=== PATIENT | male | born 1970 | race Two or more races ===

== ENCOUNTER 2025-01-27 20:36 | Emergency (ER) | payer MEDICAID, SELFPAY ==
--- NOTE | 2025-01-27 20:51 | EDNOTE_ITS ---
Altered Mental Status RME/HPI General Chief Complaint: General Adult/Misc Complain Stated Complaint: ALTERED Time Seen by Provider: 01/27/25 20:54 Arrival date/time: 01/27/25 20:36 RME / HPI RME / HPI narrative: This section includes all my notes and documentations, including HPI, PE, and ED course. Elie Piedra MD HPI: 54yo male with a history of asthma BIBA from home presents to the ED for a chief complaint of altered mental status. Per EMS, patient and his were watching TV and smoking marijuana, reporting 30 minutes later, he became altered and was vomiting. Patient states he was working out in the sun all day today. Per EMS, patient was severely hypoxic and hypotensive en route at 66/40 and gave him IVF. Patient also took a pill of Bactrim earlier today, is concerned about possible allergic reaction. No other complaints reported. ROS: All negative except as documented in HPI. Physical Exam: General: Patient seems alert. But he is not open his eyes. He seems severely anxious with severe generalized shaking. Severe hypoxia noted. Eyes: Conjunctivae and lids clear. PERRL. EOMI. ENT: No nasal congestion. Patent airway. Neck: Supple. Heart: RRR. Lungs: Mild respiratory distress. Moderately decreased air movement with bilateral wheezing. Abdomen: Soft and nontender. Legs: No clubbing, cyanosis, edema. Skin: Warm and dry. Severe erythema and inflammation in the trunk. Neuro: Alert. Cranial nerves II to XII grossly normal. No peripheral motor deficits. I reviewed all diagnostic test results. My interpretation of the EKG is sinus rhythm (92 bpm) with no acute ST?T changes. My interpretation of the chest x-ray is bilateral infiltrates. Blood tests remarkable for WBC 14.5. At this point, diagnoses include Asthma attack, Pneumonia, Allergy to Bactrim, and Heat stroke. Treatment here included Duoneb, NS, Rocephin, Azithromycin, Toradol, Ativan, and Methylprednislone. Significant improvement noted. Recommended admission for further care considering severe presentation. Patient declined. Discussed potential risks, including sudden . Still, we couldn't change his mind. Based on my best medical judgment, made decision no further evaluation or treatment indicated at this time. Patient understands and agrees to the discharge instructions customized and printed, see below. Discharge instructions from Dr. Piedra: --Since you declined hospitalization, you are being discharged. --No physical exertion for 3 days to help rest the lungs. ?No smoking or exposure to smoking or pets or dust or cold or humidity. --Zithromax and cefdinir to kill the germs causing the pneumonia. --Prednisone to help decrease the swelling in the airways. --Albuterol 2 puffs every 4-6 hours for 3 days to help keep the airways open. Then as needed for cough or shortness of breath. --Avoid Bactrim and sulfa products. --Avoid prolonged heat exposure. --For good hydration, increase oral fluid and maintain clear urine. If dark or yellow, increase oral fluid. --See a private doctor on for recheck and further care. Ask to review all test results and official radiology reports, to make sure you receive all necessary follow-ups and monitoring. Ask for help until you are completely better. --Seek immediate medical care with worsening or with any concerns. Elie Piedra MD Related Data Previous Rx's ?Medication ?Instructions ?Recorded hydrocodone 5 mg-acetaminophen 325 1 tab PO BID PRN pa in #10 tabs 03/14/ mg tablet albuterol sulfate 90 mcg/actuation 2 puff inhalation Q 6H PRN 01/27/25 aerosol inhaler shortness of breath or wheez ing #8.5 grams azithromycin 500 mg tablet 500 mg PO QDAY 3 days #3 ta bs 01/27/25 (Zithromax TRI-LUIS ENRIQUE) cefdinir 300 mg capsule 300 mg PO BID #14 caps 01/27 prednisone 50 mg tablet 50 mg PO BID 3 days #6 tabs 01/27/25 lorazepam 1 mg tablet (Ativan) 1 mg PO BID PRN anxiety #20 tabs 01/28/25 Allergies Allergy/AdvReac Type Severity Reaction Status Date / Time sulfamethoxazole (From Allergy Severe Anaphylaxis Verified 01/28/25 00:23 Bactrim) trimethoprim (From Bactrim) Allergy Severe Anaphylaxis Verified 01/28/25 00:23 NKA* Allergy Uncoded 03/14/22 08:30 Review of Systems Review of Systems Systems Reviewed: All systems reviewed, normal except as documented Past Medical History Social History SMOKING STATUS: Never smoker ED Exam Narrative Physical exam: As noted in HPI. Course Course Course Narrative: CXR is ordered for determining the etiology of AMS. 2223: Sepsis alert initiated. Orders made at this time are congruent with ED Adult Sepsis Order List. Re-evaluation is to be completed. NS IVF was infused at 2215. Quality Measures none Orders Category Date Time Status Bedside COVID-19 Antigen Test NOW Care 01/27/25 20:55 Completed Bedside Influenza A&B Antigen Test NOW Care 01/27/25 20:[address] Screening NOW Care 01/27/25 20:58 Completed EKG (ED ONLY) *Do not use* NOW Care 01/27/25 20:47 Completed Saline [Insert IV] NOW Care 01/27/25 20:[address] abdomen pelvis w con Stat Exams 01/27/25 20:[address] angio chest Stat Exams 01/27/25 20:[address] head/brain wo con Stat Exams 01/27/25 20:58 Taken EKG (ED Only) Stat Exams 01/27/25 20:47 Ordered XR chest 1V portable Stat Exams 01/27/25 20:58 Completed ABG [Arterial Blood Gas] Stat Lab 01/27/25 21:25 Completed Acetaminophen Stat Lab 01/27/25 21:13 Completed Alcohol, Blood Medical Stat Lab 01/27/25 21:13 Completed Ammonia Stat Lab 01/27/25 21:13 Completed Amylase Stat Lab 01/27/25 21:13 Completed BNP [B-Type Natriuretic Peptide] Stat Lab 01/27/25 21:13 Completed Beta Hydroxybutyrate Stat Lab 01/27/25 21:13 Completed Bilirubin,Direct Stat Lab 01/27/25 21:13 Completed Blood Culture (Lab) Stat Lab 01/27/25 21:13 Received CBC Stat Lab 01/27/25 20:59 Completed CK [Creatine Kinase] Stat Lab 01/27/25 21:13 Completed CMP [Comprehensive Metabolic Panel] Stat Lab 01/27/25 21:13 Completed CRP [C-Reactive Protein] Stat Lab 01/27/25 21:13 Completed D-Dimer Stat Lab 01/27/25 21:13 Completed ESR [Sed Rate (ESR)] Stat Lab 01/27/25 20:59 Completed Free T4 (Free Thyroxine) Stat Lab 01/27/25 21:13 Completed Lactate (Lactic Acid) Stat Lab 01/27/25 21:13 Completed Lactic Acid, 3 HR Stat Lab 01/28/25 00:06 Completed Lipase Stat Lab 01/27/25 21:13 Completed Magnesium Stat Lab 01/27/25 21:13 Completed PT [Prothrombin Time with INR] Stat Lab 01/27/25 21:13 Completed PTT [Partial Thromboplastin Time] Stat Lab 01/27/25 21:13 Completed Procalcitonin Stat Lab 01/27/25 21:13 Completed Salicylate Stat Lab 01/27/25 21:13 Completed TSH [Thyroid Stimulating Hormone] Stat Lab 01/27/25 21:13 Completed Troponin I Stat Lab 01/27/25 21:13 Completed Albuterol/Ipratr Rt Yoly [Duoneb Rt Yoly] Med 01/27/25 20:56 Discontinued 3 ml INH X1 ONE Azithromycin Inj [Zithromax Inj] 500 mg Med 01/27/25 22:22 Discontinued Sodium Chloride 0.9% 250 ml [Ns] 250 ml IV X1 Ketorolac Inj [Toradol Inj] Med 01/27/25 20:56 Discontinued 30 mg IVP X1 ONE LORazepam [Ativan Inj] Med 01/27/25 20:56 Discontinued 2 mg IVP X1 ONE MethylPREDNISolone.* [SoluMEDROL Inj] Med 01/27/25 20:56 Discontinued 125 mg IVP X1 ONE Sodium Chloride 0.9% 1000 ml [Ns] 1,000 ml Med 01/27/25 20:56 Discontinued IV 999 mls/hr Sodium Chloride 0.9% 1000 ml [Ns] 1,000 ml Med 01/27/25 20:56 Discontinued IV 999 mls/hr Sodium Chloride 0.9% 1000 ml [Ns] 1,000 ml Med 01/27/25 22:22 Discontinued IV 999 mls/hr cefTRIAXone [Rocephin] 1,000 mg Med 01/27/25 22:22 Discontinued SODIUM CHLORIDE 0.9% (Popper) [Ns 0.9% (P)] 50 ml IV X1 BiPAP / CPAP NOW RT 01/27/25 20:55 Completed Vital Signs Vital signs: Vital Signs Temperature 96.1 F L 01/27/25 21:01 Pulse Rate 94 01/27/25 21:01 Respiratory Rate 28 H 01/27/25 21:01 Blood Pressure 151/64 H 01/27/25 21:01 Pulse Oximetry (%) 90 L 01/27/25 21:01 Oxygen Delivery Method Room Air 01/27/25 21:01 Altered Mental Status MDM Narrative MDM Narrative:: Scribe Attestation: 01/27/25 - Olesya, Vonnie Rodgers am scribing for and in the presence of Dr. Piedra. Patient data External records reviewed:: [facility] previous records (Per chart review, patient has no relevant previous ED visits or admissions to this facility.) Clinical information provided by:: EMS Social determinants that could affect healthcare access:: substance use (smokes marijuana) Patient has the following chronic illnesses:: none How is presenting disease/condition affected by chronic disease/condition?: no chronic disease Evaluation data The following diagnostics were reviewed and interpreted by me:: lab results, radiology exam(s) and EKG tracing(s) Lab and/or radiology exams considered but not ordered:: none Interpretation Summary: Asthma attack, Pneumonia, Allergy to Bactrim, Heat stroke Medications / Prescriptions Medications or Prescriptions considered but not ordered:: none Medication administrations:: Medication Administration History Discontinued Medications Albuterol/Ipratropium (Albuterol/Ipratropium (Duoneb) Rt Yoly 3 Ml Nebu) 3 ml INH X1 ONE Stop: 01/27/25 20:57 Last Admin: 01/27/25 21:31 Dose: 3 ml Documented By: ADÁN Sodium Chloride (Ns) 1,000 mls @ 999 mls/hr IV .Q1H1M ONE Stop: 01/27/25 21:56 Last Infusion: 01/27/25 22:15 Dose: Infused Documented By: Admin: 01/27/25 21:14 Dose: 999 mls/hr Documented By: MADDIE Sodium Chloride (Ns) 1,000 mls @ 999 mls/hr IV .Q1H1M ONE Stop: 01/27/25 21:56 Last Infusion: 01/27/25 22:59 Dose: Infused Documented By: Admin: 01/27/25 21:15 Dose: 999 mls/hr Documented By: MADDIE Ceftriaxone Sodium 1,000 mg/ (Sodium Chloride) 50 mls @ 100 mls/hr IV X1 ONE Stop: 01/27/25 22:51 Last Infusion: 01/27/25 23:12 Dose: Infused Documented By: Admin: 01/27/25 22:42 Dose: 100 mls/hr Documented By: MADDIE Azithromycin 500 mg/ Sodium (Chloride) 250 mls @ 250 mls/hr IV X1 ONE Stop: 01/27/25 23:21 Last Infusion: 01/28/25 00:52 Dose: Infused Documented By: JUAN MIGEULL Admin: 01/27/25 23:12 Dose: 250 mls/hr Documented By: MADDIE Sodium Chloride (Ns) 1,000 mls @ 999 mls/hr IV .Q1H1M ONE Stop: 01/27/25 23:22 Last Infusion: 01/28/25 00:28 Dose: Infused Documented By: Admin: 01/27/25 22:41 Dose: 999 mls/hr Documented By: MADDIE Ketorolac Tromethamine (Ketorolac Inj 30 Mg/Ml Vial) 30 mg IVP X1 ONE Stop: 01/27/25 20:57 Last Admin: 01/27/25 21:20 Dose: Not Given Documented By: MADDIE Non-Admin Reason: Patient Refused Lorazepam (Lorazepam 2 Mg/Ml Vial) 2 mg IVP X1 ONE Stop: 01/27/25 20:57 Last Admin: 01/27/25 21:21 Dose: 2 mg Documented By: MADDIE Methylprednisolone Sodium Succinate (Methylprednisolone Sod Succ 62.5 Mg/Ml 2ml Vial) 125 mg IVP X1 ONE Stop: 01/27/25 20:57 Last Admin: 01/27/25 21:15 Dose: 125 mg Documented By: MADDIE Duoneb, NS, Rocephin, Azithromycin, Toradol, Ativan, Methylprednislone Consultations Consultation(s) initiated? (list below): No Diagnosis Differential diagnosis altered mental status: alcoholic intoxication, altered mental status, delirium, dementia, hypoglycemia, hyponatremia and sepsis Most likely diagnosis given after review of the tests above:: Asthma attack, Pneumonia, Allergy to Bactrim, Heat stroke Admission Indicated Admission indicated?: not indicated Explain why admission is indicated or not indicated:: With significant improvement, there was no indication for admission. Admission Request Was there a request for admission?: No Disposition Plan Disposition Plan: Discharge Discharge Attestation Discharge Attestation: The patient and all family members were given an opportunity to ask questions and understood the discharge instructions. Discharge instructions specifically effects, indications for sooner follow up or return to the emergency department, and the expected course of current diagnosis. Patient condition: Stable Critical Care Time Critical Care Time Critical Care Time: Yes Total Critical Care Time (min.): 39 Attestation: Due to a high probability of clinically significant, life threatening deterioration, the patient required my highest level of preparedness to intervene emergently and I personally spent this critical care time directly and personally managing the patient. This critical care time included obtaining a history; examining the patient; ordering and review of studies; arranging urgent treatment with development of a management plan; evaluation of patient's response to treatment; frequent reassessment; and discussions with family and other providers. It was exclusive of separately billable procedures and treating other patients and teaching time. Elie Piedra MD Discharge Plan Plan Patient Disposition: HOME (Self Care) Prescriptions/Referrals Prescriptions/Med Rec: New prednisone 50 mg tablet 50 mg PO BID 3 Days Qty: 6 0RF albuterol sulfate 90 mcg/actuation HFA aerosol inhaler 2 puff inhalation Q6H PRN (Reason: shortness of breath or wheezing) Qty: 8.5 0RF cefdinir 300 mg capsule 300 mg PO BID Qty: 14 0RF azithromycin [Zithromax TRI-LUIS ENRIQUE] 500 mg tablet 500 mg PO QDAY 3 Days Qty: 3 0RF lorazepam [Ativan] 1 mg tablet 1 mg PO BID PRN (Reason: anxiety) Qty: 20 0RF No Action hydrocodone-acetaminophen 5-325 mg tablet 1 tab PO BID MDD 10 PRN (Reason: pain) Qty: 10 0RF Problem List Clinical Impression: Asthma attack, Pneumonia, Allergy to Bactrim, Heat stroke Patient/Caregiver Discharge Instructions Discharge Activity: activity as tolerated Education Materials: ED Asthma, Acute (Adult), ED Drug Reaction, Other, ED Heat Exhaustion, ED Pneumonia (Adult) Additional Instructions: Discharge instructions from Dr. Piedra: --Since you declined hospitalization, you are being discharged. --No physical exertion for 3 days to help rest the lungs. ?No smoking or exposure to smoking or pets or dust or cold or humidity. --Zithromax and cefdinir to kill the germs causing the pneumonia. --Prednisone to help decrease the swelling in the airways. --Albuterol 2 puffs every 4-6 hours for 3 days to help keep the airways open. Then as needed for cough or shortness of breath. --Avoid Bactrim and sulfa products. --Avoid prolonged heat exposure. --For good hydration, increase oral fluid and maintain clear urine. If dark or yellow, increase oral fluid. --See a private doctor on for recheck and further care. Ask to review all test results and official radiology reports, to make sure you receive all necessary follow-ups and monitoring. Ask for help until you are completely better. --Seek immediate medical care with worsening or with any concerns. Print Language: Polish Stand Alone Forms: [employer] Award Info., Patient Portal Info Letter
[2025-01-27 20:56] VITALS: BMI 28.1
--- NOTE | 2025-01-27 20:58 | XR_ITS ---
Examination: CT abdomen with intravenous contrast CT pelvis with intravenous contrast 2-D coronal reconstructions 2-D sagittal reconstructions Date and time of exam: January 28, 2025 at 0003 hrs. Indications: Onset abdominal pain today CTDI: vol (mGy) 7.93 DLP: (mGycm) 507 Technique: Multiple axial sections of the abdomen and pelvis have been obtained. 64 slice high-resolution scanner used. 3 mm axial sections have been obtained, post intravenous injection 100 cc Isovue-370 2-D sagittal, coronal reconstructions obtained. Low dose protocols were performed. One or more of the following dose reduction techniques were used; automated exposure control, adjustment of the mA and/or KV according to patient size, use of iterative reconstruction technique. Findings: No focal liver or splenic lesions No gallstones No pancreatic or adrenal mass No renal or ureteral calculi, no hydronephrosis Normal appendix No bowel obstruction Mild diffuse wall thickening involving the colon Abundant stool in the rectosigmoid No significant prostatomegaly Impression: Normal appendix Mild nonspecific colitis pattern
--- NOTE | 2025-01-27 20:58 | XR_ITS ---
Examination: CT brain head without contrast. 2-D sagittal coronal reconstructions Date and time of exam:January 27, 2025 at 1154 hrs. Indications: Altered mental status today CTDI: vol (mGy):51.5 DLP: (mGycm):1033 Technique: Multiple CT axial sections of the brain have been obtained, 5 mm slice thickness. Contrast has not been administered. 2-D sagittal, coronal reconstructions have been obtained Low dose protocols were performed. One or more of the following dose reduction techniques were used; automated exposure control, adjustment of the mA and/or KV according to patient size, use of iterative reconstruction technique. Findings: No significant ventricular enlargement. Intra-axial or extra-axial hemorrhage density is not seen. No mass effect or midline shift Basal cisterns are not remarkable. Fourth ventricle is midline. Cranial vault intact. Impression: Negative for acute hemorrhage, mass effect or midline shift Advise clinical correlation follow-up accordingly
--- NOTE | 2025-01-27 20:58 | XR_ITS ---
Examination: AP chest single view Technique one AP portable upright chest single view Exam date and time: January 27, 2025 2108 hrs. Indications: Shortness of breath today. Findings: Suspicious for early right lung nodular pneumonia Normal heart size Moderate osteopenia Impression: Suspicious for early diffuse right lung pneumonia, clinical correlation advised Recommend short-term follow-up chest imaging
--- NOTE | 2025-01-27 20:59 | XR_ITS ---
Examination: CTA chest with intravenous contrast 2-D reconstructions 3-D reconstructions, vascular Date and time of exam: January 28, 2025 at 0002 hrs. Indications: Shortness of breath chest pain today CTDI: vol (mGy) 9.52 DLP: (mGycm) 590 Technique: Multiple axial sections of the thorax have been obtained. 3 mm slice thickness, from below the hemidiaphragms to above the apices of the lungs. Mediastinal and lung density settings have been obtained. 2-D sagittal and coronal reconstructions. 3-D angiographic renderings, 3-D volume renderings, 3D post processing, vascular maximum intensity projections obtained. Contrast administered is 100 cc Isovue-370 intravenous . Low dose protocols were performed. One or more of the following dose reduction techniques were used; automated exposure control, adjustment of the mA and/or KV according to patient size, use of iterative reconstruction technique. Findings: No thoracic aortic aneurysmal dilatation or dissection No pulmonary artery filling defects No paratracheal tracheobronchial or bronchopulmonary adenopathy Mild atelectasis versus pneumonia in the lower lung zones Severe diffuse fatty infiltration throughout the liver No gallstones Spleen not enlarged No pancreatic or adrenal mass Kidneys partially visualized no hydronephrosis Impression: Negative for pulmonary artery emboli Atelectasis versus mild pneumonia cholelithiasis
[2025-01-27 21:01] VITALS: BP 151/64; PULSE 94; RESP 28; TEMP 35.6; O2SAT 90
[2025-01-27] MEDS: SODIUM CHLORIDE 0.9% 1000 ML 1,000 ML 999 ML IV ×3 (21:14→22:41)
[2025-01-27] MEDS: MethylPREDNISolone SOD SUCC 62.5 MG/ML 2ML VIAL 125 MG IVP (21:15)
[2025-01-27 21:21] LABS: Lactate (Lactic Acid) 2.3 mMol/L (0.4-2.0)
[2025-01-27] MEDS: LORazepam 2 MG/ML VIAL IVP (21:21)
[2025-01-27 21:22] LABS: Basophils % (Auto) 0 % (0-2.5); Eosinophils # (Auto) 0.1 Thou/mm3 (0.0-0.5); Eosinophils % (Auto) 0 % (0-10); Hematocrit 47.5 % (41.0-53.0); Hemoglobin 15.6 g/dL (13.5-16.0); Immature Granulocytes % (Auto) 1 % (0-0); Immature Granulocytes Auto 0.08 Thou/mm3 (0.00-0.00); Lymphocytes # (Auto) 5.7 Thou/mm3 (1.0-4.8); Lymphocytes % (Auto) 40 % (10-50); Mean Corpuscular HGB Conc 32.8 g/dl (31.0-37.0); Mean Corpuscular Hemoglobin 26.7 pg (25.0-35.0); Mean Corpuscular Volume 81 fL (80-100); Monocytes # (Auto) 0.6 Thou/mm3 (0.0-0.8); Monocytes % (Auto) 4 % (0-12); Neutrophils # (Auto) 8.1 Thou/mm3 (1.8-7.7); Neutrophils % (Auto) 55 % (37-80); Nucleated Red Blood Cell % 0 /100 WBC (0); Platelet Count 343 Thou/mm3 (140-440); RDW Standard Deviation 42.9 fL (35.1-43.9); Red Blood Count 5.85 Miln/mm3 (4.50-5.90); White Blood Count 14.5 Thou/mm3 (3.8-10.6)
[2025-01-27 21:23] VITALS: PULSE 84; O2SAT 92
[2025-01-27 21:31] LABS: Sed Rate (ESR) 12 mm/hr (0-20)
[2025-01-27] MEDS: ALBUTEROL/IPRATROPIUM (Duoneb) RT SOL 3 ML NEBU INH (21:31)
[2025-01-27 21:33] VITALS: PULSE 100; RESP 26; O2SAT 91
[2025-01-27 21:36] LABS: Base Excess 2 (-3-3); HCO3 27 mEq/L (20-26); Inspired Oxygen, FIO2 92 %; O2 Saturation 94 % (91-98); PCO2 44 mmHg (32.0-48.0); PO2 65 mmHg (83-108)
[2025-01-27 21:38] LABS: Allen Test Performed/OK; Puncture Site Right Radial
[2025-01-27 21:49] LABS: Ammonia 25 uMol/L (11-32)
[2025-01-27 21:50] LABS: D-Dimer 335 ng/mL (<600)
--- NOTE | 2025-01-27 21:54 | PC.NURSE ---
Pt brought in by ambulance for AMS. Pt is alert and oriented on arrival but is shaking (like he has the chills). Pt states he was outside working earlier today, he went to watch TV with his girlfriend. He states he smoked THC and took a bactrim, pt started to get SOB, AMS and generalized redness/shaking. Rectal temp done on arrival, temperature WNL. Pt denies being allergic to bactrim. Requested benadryl for possible allergic reaction, no new orders, provider did give the patient steroids.
[2025-01-27 21:59] LABS: Partial Thromboplastin Time 25.1 Seconds (22.0-36.0); Prothrombin Time 11.1 Seconds (9.0-12.2)
[2025-01-27 22:05] LABS: Carbon Dioxide 22.3 mMol/L (20.0-31.0); Chloride 108 mMol/L (98-107); Potassium 4.1 mMol/L (3.4-5.1); Sodium 141 mMol/L (136-145)
[2025-01-27 22:06] VITALS: BP 125/73; PULSE 97; RESP 22; O2SAT 95
[2025-01-27 22:06] LABS: Acetaminophen < 2.0 mcg/mL (10.0-20.0); Alanine Aminotransferase 23 U/L (10-49); Albumin, Serum 4.2 gm/dL (3.5-5.0); Albumin/Globulin Ratio 1.4 (1.2-2.2); Alcohol, Blood Medical < 3.0 mg/dL (0-10.0); Alkaline Phosphatase 87 U/L (46-116); Anion Gap 11 (7-16); Aspartate Amino Transferase 26 U/L (0-34); BUN/Creatinine Ratio 14 Ratio (12-20); Bilirubin,Direct 0.2 mg/dL (0.0-0.3); Bilirubin,Total 0.6 mg/dL (0.3-1.2); Blood Urea Nitrogen 15 mg/dL (9-23); Calcium 9.9 mg/dL (8.3-10.6); Calcium (Corrected) 9.9 mg/dL (8.5-10.1); Creatine Kinase 160 U/L (34-171); Creatinine (Component) 1.1 mg/dL (0.6-1.3); Estimated Creatinine Clearance 88.2 mL/min (>60); Free T4 (Free Thyroxine) 1.21 ng/dL (0.89-1.76); Globulin 2.9 gm/dL (2.3-3.5); Glucose 131 mg/dL (74-106); Lipase 219 U/L (12-53); Magnesium 1.9 mg/dL (1.6-2.6); Osmolality,Calculated 284 (275-295); Salicylate < 3.0 mg/dL; Thyroid Stimulating Hormone 2.99 uIU/mL (0.55-4.78); Total Protein 7.1 gm/dL (5.7-8.2); Troponin I < 0.020 ng/mL (0.0-0.045); eGFR > 60 See Note
[2025-01-27 22:07] LABS: B-Type Natriuretic Peptide < 20 pg/mL (0-100)
[2025-01-27] MEDS: cefTRIAXone 1,000 MG in SODIUM CHLORIDE 0.9% (Popper) 50 ML 100 MG IV (22:42)
[2025-01-27 22:45] VITALS: BP 132/82; PULSE 89; RESP 25; O2SAT 94
[2025-01-27] MEDS: AZITHROMYCIN INJ 500 MG in SODIUM CHLORIDE 0.9% 250 ML 250 ML 250 MG IV (23:12)
[2025-01-27 23:38] LABS: Amylase 159 U/L (30-118); C-Reactive Protein < 0.5 mg/dL (0.0-0.9); Procalcitonin 0.08 ng/ml (0.0-0.49)
[2025-01-28 00:18] LABS: Reflex Lactate? Y
[2025-01-28 00:33] VITALS: BP 116/76; PULSE 85; RESP 18; TEMP 36.6; O2SAT 93
[2025-01-28 00:33] LABS: Lactic Acid, 3 HR 0.9 mMol/L (0.4-2.0)
--- NOTE | 2025-01-28 00:46 | PRELIM_ITS ---
CT angiogram of the chest with intravenous contrast (axial sections with sagittal and coronal reformats, 3D/MIP reconstructed images) January 27, 2025 2357 hours Clinical History: Shortness of breath No prior study is available for comparison. Findings: There is no filling defect within the pulmonary artery divisions to suggest pulmonary thromboembolism. The mediastinum demonstrates no evidence of mass or lymphadenopathy. The thoracic aorta is unremarkable. There is no pericardial effusion. A small hiatal hernia is present. Dependent airspace opacities are noted in the bilateral lower lungs. No evidence of pleural effusion or pneumothorax. The osseous structures are unremarkable. Impression: No evidence of pulmonary thromboembolism. Dependent airspace opacities in the bilateral lower lungs, which may represent infiltrates/atelectasis. Recommend follow-up. Please refer to the report on the Abdomen and pelvis CT submitted separately. Report Electronically Signed By: Librado Uribe 01/28/2025 12:46:22 AM [EST]
--- NOTE | 2025-01-28 00:51 | PRELIM_ITS ---
CT scan of the abdomen and pelvis with intravenous contrast (axial sections with sagittal and coronal reformats) January 27, 2025 2357 hours Clinical History: Abdominal pain No prior study is available for comparison. Findings: The liver, gallbladder, pancreas, spleen, kidneys and adrenals are unremarkable. No evidence of bowel dilatation. There are prominent fluid filled small bowel loops in the abdomen with apparent mild wall thickening. There is mild to moderate wall thickening of the ascending, transverse, descending and sigmoid colon with mild pericolonic fat stranding. There are occasional colonic d iverticula without evidence of diverticulitis. The appendix is within normal limits. The urinary bladder is unremarkable. There is mild prostatomegaly. There is no free fluid or free air.There is no adenopathy. A small fat-containing right periumbilical hernia is present. Mild degenerative changes are identified in the spine. Impression: Findings suggestive of enterocolitis. Recommend clinical correlation. Other findings as described above. Please refer to the report on the Chest CTA submitted separately. Report Electronically Signed By: Librado Uribe 01/28/2025 12:50:26 AM [EST]
[2025-01-28 00:58] VITALS: BP 116/76; PULSE 86; RESP 18; O2SAT 95
--- NOTE | 2025-01-28 01:06 | PRELIM_ITS ---
CT scan of the head without intravenous contrast (axial sections with sagittal and coronal reformats). January 27, 2025 at 2354 hours Clinical History: Altered mental status. No prior study is available for comparison. Findings: No evidence of intracranial hemorrhage, mass effect or midline shift. The ventricles and CSF spaces are unremarkable. The calvarium is unremarkable. The mastoid air cells and the visualized paranasal sinuses are clear. Impression: No evidence of intracranial hemorrhage, mass effect or midline shift. Other findings as described above. Report Electronically Signed By: Librado Uribe 01/28/2025 1:05:43 AM [EST]
[2025-01-28 06:12] LABS: Path Review Blood Smear Sent to Pathologist
== END 2025-01-28 00:59 | disposition home or self-care (01) ==
LOC: SERX 01-28 00:44
PROVIDERS: Emergency Provider Emergency Medicine; PCP Family Medicine
DX: J18.9 Pneumonia, unspecified organism (principal); J45.901 Unspecified asthma with (acute) exacerbation; T67.01XA Heatstroke and sunstroke, initial encounter; R09.02 Hypoxemia; I95.9 Hypotension, unspecified; Z88.1 Allergy status to other antibiotic agents; Z88.2 Allergy status to sulfonamides; X58.XXXA Exposure to other specified factors, initial encounter
CPT/HCPCS: 36415; 36600; 70450; 71045; 71275; 74177; 80053; 80307; 80320; 80329; 81001; 82010; 82140; 82150; 82248; 82550; 82803; 83605; 83690; 83735; 83880; 84145; 84439; 84443; 84484; 85025; 85379; 85610; 85652; 85730; 86140; 87040; 87400; 87811; 93005; 94640; 96361; 96365; 96366; 96367; 96375; 99291; A4649; A9270; J0456; J0696; J1885; J2060; J2919; J7030; J7050; Q9967; G0480